=== PATIENT | male | born 1985 | race Caucasian/White ===

== ENCOUNTER 2020-09-23 22:01 | Emergency (ER) | payer OTHER ==
[~2020-09-23] VITALS: Ht 177.8 cm; Wt 68.0 kg
[2020-09-23 22:28] LABS: Bilirubin, Urine Neg (Neg); Blood, Urine Neg (Neg); Glucose Qualitative, Urine Neg (Neg); Ketones, Urine Neg (Neg); Leukocyte Esterase, Urine Neg (Neg); Nitrite, Urine Neg (Neg); Protein, Urine Neg (Neg); Source, Urine Clean Catch; Specific Gravity, Urine 1.015 (1.003-1.022); Urobilinogen, Urine NORM (Normal)
[2020-09-23 22:33] LABS: Appearance, Urine Clear (Clear); Color, Urine Yellow (P-Yellow)
== END 2020-09-24 00:35 | disposition home or self-care (01) ==
LOC: ER 22:01
PROVIDERS: Emergency Medicine
DX: R10.9 Unspecified abdominal pain (principal); F17.210 Nicotine dependence, cigarettes, uncomplicated
CPT/HCPCS: 74176; 81003; 99284-25